=== PATIENT | female | born 1995 | race American Indian/Alaskan Native ===

== ENCOUNTER 2019-03-26 00:24 | Emergency (ER) | payer MEDICAID ==
[~2019-03-26] VITALS: Ht 160 cm; Wt 136.1 kg
[~2019-03-26 00:24] MED LIST: IBUP800 PO; NAPR500 PO; Norco 5-325 Ta1 EACH PO
== END 2019-03-26 02:42 | disposition home or self-care (01) ==
LOC: ER 00:24
DX: G47.00 Insomnia, unspecified (principal)
CPT/HCPCS: 99283